=== PATIENT | male | born 1975 | race Caucasian/White ===

== ENCOUNTER 2017-03-29 13:49 | Emergency (ER) | payer BC ==
[~2017-03-29] VITALS: Ht 180.3 cm; Wt 90.0 kg
[~2017-03-29 13:49] MED LIST: LEVE500 PO
[2017-03-29 13:51] VITALS: BP 122/69; PULSE 72; RESP 20; TEMP 98.2; O2SAT 100
--- NOTE | 2017-03-29 14:13 | PD ---
Physical Exam Time Seen by Provider: 14:10 Narrative 41 y/o male hx glioblastoma here for eval fevers tmax 103, swelling L sikh region for the past [address] Mckeon is his oncologist, sent here by Dr. Lund. Vital signs reviewed. seen at triage desk. Awaiting bed placement. Data Data Last Documented VS Vital Signs Date Time Temp Pulse Resp B/P Pulse Ox O2 Delivery O2 Flow Rate FiO2 03/29/17 13:51 98.2 72 20 122/69 100 Room Air [facility] Medical Record Reviewed: Yes Supervised Visit with SONG: Kade Daly Mar 29, 2017 14:13
[2017-03-29] MEDS ORDERED: VIMP200T PO (14:24)
[2017-03-29] MEDS ORDERED: SODIUM CHLORIDE 0.9% FLUSH 10 ML FLUSH IVF PRN (14:30)
--- NOTE | 2017-03-29 14:46 | PD ---
HPI Chief Complaint: Neuro Symptoms/ Deficits Time Seen by Provider: 14:41 Travel History International Travel<30 days: No Contact w/Intl Traveler<30days: No Traveled to known affect area: No History of Present Illness HPI 41-year-old male presents to the emergency department for evaluation of swelling to the left temporal area. The patient states that he was sick on Sunday with 103 fever and vomiting. He states by Sunday evening, his symptoms were much better. He reports headache as well then with neck pain. At this time, he states that his viral symptoms have resolved. He has had no more fevers or vomiting. He reports that mild headache and some mild neck pain at this time. Patient states he started noticing some mild swelling to left temporal area approximately 1-1.5 days ago. His noticed it worsened today. The patient has history of recurrent brain tumor. Dr. Martinez, who is a good friend at the patient called and updated me on the patient. Apparently, approximate 10 years ago he had brain tumor. He has surgery and radiation as well as chemotherapy and went into remission. However, in August , they noticed another spot on the brain. Had 2 surgeries in [place], the last being approximately 8-9 weeks ago. He also used to fill her to prevent indentation in the head. Dr. Noe her is the one was taken off his sutures. Dr. Lund is also a good friend of theirs. They are concerned of swelling could be hematoma, abscess, herniating brain at the worst. His states that they have contacted his neurosurgeon in [place] who states they believe it is CSF. Dr. Martinez would like CT of the brain without contrast as well as MRI with and without contrast ordered. [facility] Past Medical History Diminished Hearing: No Neurologic: Yes (brain tumor) Seizures: Yes Past Surgical History Neurologic Surgery: Yes (brain tumor) Social History Alcohol Use: No Tobacco Use: No Substance Use: No Allergies-Medications (Allergen,Severity, Reaction): Coded Allergies: No Known Allergies (Verified , 09/03/15) Reported Meds & Prescriptions Reported Meds & Active Scripts Active Reported Vimpat (Lacosamide) 200 Mg Tab 200 Mg PO BID Review of Systems Except as stated in HPI: all other systems reviewed are Neg Physical Exam Narrative GENERAL: Well-nourished, well-developed male patient, afebrile. SKIN: Focused skin assessment warm/dry. HEAD: Normocephalic. Atraumatic. Patient does have swelling noted to left temporal area. No erythema or drainage. EYES: No scleral icterus. No injection or drainage. NECK: Supple, trachea midline. No JVD or lymphadenopathy. CARDIOVASCULAR: Regular rate and rhythm without murmurs, gallops, or rubs. RESPIRATORY: Breath sounds equal bilaterally. No accessory muscle use. Lungs sounds are clear to auscultation. GASTROINTESTINAL: Abdomen soft, non-tender, nondistended. MUSCULOSKELETAL: No cyanosis, or edema. BACK: Nontender without obvious deformity. No CVA tenderness. NEUROLOGICAL: Awake and alert. Cranial nerves II through XII intact. Motor and sensory grossly within normal limits. Five out of 5 muscle strength in all muscle groups. Normal speech. Data Data Last Documented VS Vital Signs Date Time Temp Pulse Resp B/P Pulse Ox O2 Delivery O2 Flow Rate FiO2 03/29/17 17:37 73 18 111/64 93 Room Air 03/29/17 13:51 98.2 Orders Complete Blood Count With Diff (03/29/17 14:27) Comprehensive Metabolic Panel (03/29/17 14:27) Prothrombin Time / Inr (Pt) (03/29/17 14:27) Act Partial Throm Time (Ptt) (03/29/17 14:27) Blood Culture (03/29/17 14:27) Ct Brain W/O Iv Contrast(Rout) (03/29/17 14:27) Ecg Monitoring (03/29/17 14:27) Iv Access Insert/Monitor (03/29/17 14:27) Oximetry (03/29/17 14:27) Sodium Chloride 0.9% Flush (Ns Flush) (03/29/17 14:30) Lactic Acid Sepsis Protocol (03/29/17 14:27) Mri Brain W&W/O Contrast (03/29/17 ) Ondansetron Inj (Zofran Inj) (03/29/17 15:30) Gadodiamide Pf Inj (Omniscan Pf Inj) (03/29/17 17:02) Radiology Film Requests (03/29/17 ) Labs Laboratory Tests Test 03/29/17 14:50 White Blood Count 7.9 TH/MM3 Red Blood Count 4.69 MIL/MM3 Hemoglobin 14.2 GM/DL Hematocrit 42.1 % Mean Corpuscular Volume 89.7 FL Mean Corpuscular Hemoglobin 30.2 PG Mean Corpuscular Hemoglobin 33.7 % Concent Red Cell Distribution Width 13.5 % Platelet Count 225 TH/MM3 Mean Platelet Volume 9.5 FL Neutrophils (%) (Auto) 68.1 % Lymphocytes (%) (Auto) 24.3 % Monocytes (%) (Auto) 7.0 % Eosinophils (%) (Auto) 0.4 % Basophils (%) (Auto) 0.2 % Neutrophils # (Auto) 5.4 TH/MM3 Lymphocytes # (Auto) 1.9 TH/MM3 Monocytes # (Auto) 0.6 TH/MM3 Eosinophils # (Auto) 0.0 TH/MM3 Basophils # (Auto) 0.0 TH/MM3 CBC Comment DIFF FINAL Differential Comment Prothrombin Time 10.6 SEC Prothromb Time International 1.0 RATIO Ratio Activated Partial 27.8 SEC Thromboplast Time Sodium Level 140 MEQ/L Potassium Level 4.2 MEQ/L Chloride Level 105 MEQ/L Carbon Dioxide Level 29.7 MEQ/L Anion Gap 5 MEQ/L Blood Urea Nitrogen 17 MG/DL Creatinine 1.16 MG/DL Estimat Glomerular Filtration 69 ML/MIN Rate Random Glucose 84 MG/DL Lactic Acid Level 1.3 mmol/L Calcium Level 9.1 MG/DL Total Bilirubin 0.8 MG/DL Aspartate Amino Transf 10 U/L (AST/SGOT) Alanine Aminotransferase 15 U/L (ALT/SGPT) Alkaline Phosphatase 55 U/L Total Protein 7.5 GM/DL Albumin 4.5 GM/DL MDM Medical Decision Making Medical Screen Exam Complete: Yes Emergency Medical Condition: Yes Medical Record Reviewed: Yes Interpretation(s) Last Impressions Head CT 03/29/17 1427 Signed Impressions: Service Date/Time: March 15:24 - CONCLUSION: 1. Stable left frontoparietal mid convexity encephalomalacia. 2. Interval development of subdural and subgaleal collection surrounding the left parietal craniotomy which contains a small focus of air. The findings are concerning for abscess. Curtis Scott MD Brain MRI 03/29/17 0000 Signed Impressions: Service Date/Time: March 16:56 - CONCLUSION: 1. Interval development of a rind of enhancement in an area of encephalomalacia in the left frontal lobe at the previous tumor resection which is concerning for tumor recurrence. There's also a new subdural and subgaleal fluid collection around the left craniotomy that does demonstrate some rim enhancement. Cannot exclude infection. Blue Zelaya MD Differential Diagnosis Hematoma versus CSF leakage versus abscess Narrative Course 41-year-old male history of brain tumor, recurrent in August presents to the emergency department for evaluation of swelling to left temporal area. CBC, CMP , PTT, PTT/INR, blood cultures 2, lactic acid are ordered and pending. CT of the brain without contrast as well as MRI of the brain with and without contrast are ordered and pending. CBC is unremarkable. CMP shows no acute abnormality. Lactic acid is 1.3. Coags are unremarkable. CT of the brain shows stable left frontoparietal mid convexity encephalomalacia; Interval development of subdural and subgaleal collection surrounding the left parietal craniotomy which contains a small focus of air. The findings are concerning for abscess. MRI of the brain shows interval development of a rind of enhancement in an area of encephalomalacia in the left frontal lobe at the previous tumor resection which is concerning for tumor recurrence. There's also a new subdural and subgaleal fluid collection around the left craniotomy that does demonstrate some rim enhancement. Cannot exclude infection. I spoke to Dr. Mckeon after CT reading was back. He states that he would like to be called after MRI is back. Dr. Martinez is in the emergency department. She spoke to Dr. Mckeon and Dr. Lund after MRI. According to her, Dr. Lund and Dr. Mckeon would like a neurosurgeon to see the patient and clear him for possible discharge. I called Dr. Gomez and spoke to Lidya, his nurse. She states she'll relay the message to him. The patient is updated he verbalizes agreement. Him and his like copies of the imaging. CDs are ordered. The patient states that he cannot wait for neurosurgeon to come see him and he would like to go. He states he turned spoke to Dr. Lund personally and is no longer concerned. He states swelling is going down. He states that he will send the images of the MRI and CT to his neurosurgeon in [place]. The patient will be discharged to follow-up. He is to return for any acute worsening of symptoms. He verbalizes agreement and understanding. Diagnosis Primary Impression: Abscess after procedure Referrals: Neurosurgeon call for appointment Patient Instructions: Abscess (ED), General Instructions Additional Instructions: Follow-up with your neurosurgeon. Return to the emergency department for any acute worsening of symptoms. Med/Other Pt SpecificInfo: No Change to Meds Disposition: 01 DISCHARGE HOME Condition: Stable CyrusSusie Mar 29, 2017 14:45
[2017-03-29 14:56] VITALS: O2SAT 99
[2017-03-29 15:28] LABS: AUTOMATED NEUTROPHIL # 5.4 TH/MM3 (1.8-7.7); BASOPHIL % 0.2 % (0.0-2.0); EOSINOPHIL % 0.4 % (0.0-4.0); HEMATOCRIT 42.1 % (39.0-51.0); HEMO FLAGS DIFF FINAL; LYMPH % 24.3 % (9.0-44.0); LYMPHOCYTE # 1.9 TH/MM3 (1.0-4.8); MEAN CELL VOLUME 89.7 FL (80.0-100.0); MEAN CORPUSCULAR HEMOGLOBIN 30.2 PG (27.0-34.0); MEAN CORPUSCULAR HGB CONC 33.7 % (32.0-36.0); NEUT % 68.1 % (16.0-70.0); PLATELET COUNT 225 TH/MM3 (150-450); RED BLOOD COUNT 4.69 MIL/MM3 (4.50-5.90); RED CELL DISTRIBUTION WIDTH 13.5 % (11.6-17.2); WHITE BLOOD COUNT 7.9 TH/MM3 (4.0-11.0)
[2017-03-29] MEDS ORDERED: ONDANSETRON HCL 4 MG/2 ML VIAL IV PUSH ONE (15:30)
[2017-03-29 15:44] LABS: APTT (PATIENT) 27.8 SEC (24.3-30.1); PROTHROMBIN TIME - PATIENT 10.6 SEC (9.8-11.6)
[2017-03-29 15:47] LABS: ALT (GPT) 15 U/L (12-78); ANION GAP 5 MEQ/L (5-15); AST (GOT) 10 U/L (15-37); BICARBONATE 29.7 MEQ/L (21.0-32.0); BLOOD UREA NITROGEN 17 MG/DL (7-18); CHLORIDE 105 MEQ/L (98-107); GLOMERULAR FILTRATION RATE 69 ML/MIN (>89); POTASSIUM 4.2 MEQ/L (3.5-5.1); SODIUM (NA) 140 MEQ/L (136-145)
[2017-03-29 15:49] LABS: ALKALINE PHOSPHATASE 55 U/L (45-117); TOTAL BILIRUBIN ADULT 0.8 MG/DL (0.2-1.0)
--- NOTE | 2017-03-29 16:18 | RADRPT ---
EXAM DATE/TIME: 03/29/2017 15:24 [facility] COMPARISON: CT BRAIN W & W/O CONTRAST, September 03, 2015, 10:50. MRI BRAIN W & W/O CONTRAST, September 03, 2015, 1 6:58. INDICATIONS : History of craniotomy, swelling left temporal area with headaches. RADIATION DOSE: 37.46 CTDIvol (mGy) MEDICAL HISTORY : Seizures. brain tumor SURGICAL HISTORY : Craniotomy. ENCOUNTER: Initial ACUITY: 2 days PAIN SCALE: 0/10 LOCATION: cranial TECHNIQUE: Multiple contiguous axial images were obtained of the head. Using automated exposure control and adj ustment of the mA and/or kV according to patient size, radiation dose was kept as low as reasonably a chievable to obtain optimal diagnostic quality images. DICOM format image data is available electro nically for review and comparison. FINDINGS: Redemonstration of left parietal craniotomy with stable encephalomalacic defect in the left frontopar ietal mid convexity. There is associated ex vacuo enlargement of the frontal horn of left lateral christina tricle. Lateral ventricles are otherwise stable. Interval development of subdural and subgaleal fluid collections containing a small focus of air. These subdural collection measures 4.1 x 0.4 cm and the subgaleal collection measures 6.3 x 1.0 cm. Examination is otherwise stable. There is normal staley-white matter differentiation. Cerebellum and br ainstem are intact. Remainder of the calvarium is intact. Mastoid air cells and paranasal sinuses are clear. CONCLUSION: 1. Stable left frontoparietal mid convexity encephalomalacia. 2. Interval development of subdural and subgaleal collection surrounding the left parietal craniotomy which contains a small focus of air. The findings are concerning for abscess. Curtis Scott MD on March 29, 2017 at 15:56 Board Certified Radiologist. This report was verified electronically.
[2017-03-29] MEDS ORDERED: GADODIAMIDE PF 287 MG/ML 20 ML VIAL (for RAD MRI) IV ONE (17:02)
[2017-03-29 17:37] VITALS: BP 111/64; PULSE 73; RESP 18; O2SAT 93
--- NOTE | 2017-03-29 17:59 | RADRPT ---
EXAM DATE/TIME: 03/29/2017 16:56 [facility] COMPARISON: No previous studies available for comparison. [facility], [facility]WO January 15, 2017 INDICATIONS : Mass. CONTRAST: 17 cc Omniscan (gadodiamide) IV MEDICAL HISTORY : Glioblastoma. SURGICAL HISTORY : Brain tumor removal. ENCOUNTER: Subsequent ACUITY: > 1 year PAIN SCORE: 0/10 LOCATION: Head. TECHNIQUE: Multiplanar, multisequence MRI of the brain was performed both prior to and following the administrat ion of paramagnetic contrast. FINDINGS: Comparison is August 2015. Since previous exam a rind of enhancement has developed in the area of en cephalomalacia in the left frontal lobe. This measures up to about 9 mm in thickness and is fairly ci rcumferential but is predominantly along the posterior aspect and lateral aspect. This could indicate local tumor recurrence. There is also interval development a left-sided subdural and subgaleal fluid collection measuring up to about 5.3 x 2.4 cm. This fluid collection does demonstrate some mild rim enhancement. There is no significant mass effect. There is some mild right to left midline shift from encephalomal acia. No lesions identified in the right hemisphere. No recent infarction. CONCLUSION: 1. Interval development of a rind of enhancement in an area of encephalomalacia in the left frontal l obe at the previous tumor resection which is concerning for tumor recurrence. There's also a new subd ural and subgaleal fluid collection around the left craniotomy that does demonstrate some rim enhance ment. Cannot exclude infection. Blue Zelaya MD on March 29, 2017 at 17:50 Board Certified Radiologist. This report was verified electronically.
== END 2017-03-29 20:03 | disposition home or self-care (01) ==
LOC: NEPE 13:49
DX: T81.4XXA Infection following a procedure, initial encounter (principal); Z85.841 Personal history of malignant neoplasm of brain; Z98.890 Other specified postprocedural states; Z92.3 Personal history of irradiation; Z92.21 Personal history of antineoplastic chemotherapy
CPT/HCPCS: 70450; 70553; 80053; 83605; 85025; 85610; 85730; 87040; 96374; 99285; A9579; J2405